=== PATIENT | female | born 1950 | race Caucasian/White ===

== ENCOUNTER 2024-04-23 08:13 | Inpatient (IN) | payer MEDICARE, OTHER, SELFPAY ==
[2024-04-07 14:00] LABS: Hematocrit 37.3 % (37.0-47.0); Hemoglobin 12.1 g/dL (12.0-16.0); Mean Corp Hgb Conc. 32.4 g/dL (33.0-37.0); Mean Corpuscular Hgb 30.6 pg (27.0-31.0); Mean Corpuscular Volume 94.2 fL (81.0-99.0); Mean Platelet Volume 10.9 fL (7.4-10.4); Platelet Count 255 10^3/uL (130-400); Red Blood Cell Count 3.96 10^6/uL (4.20-5.40); White Blood Cell Count 4.7 10^3/uL (4.8-10.8)
[2024-04-07 14:01] VITALS: BMI 30.8
[2024-04-07 14:37] VITALS: BMI 30.8
[2024-04-07 14:57] LABS: ALT (SGPT) 25 U/L (0-35); AST (SGOT) 29 U/L (14-36); Albumin 4.1 g/dl (3.5-5.0); Alkaline Phosphatase 52 U/L (38-126); Blood Urea Nitrogen 14 mg/dl (7-17); Calcium 9.9 mg/dl (8.4-10.2); Carbon Dioxide 28 mmol/L (22-30); Chloride 103 mmol/L (98-107); Estimated Creatinine Clearance 75 ml/min; Glucose 63 mg/dl (70-99); Sodium 136 mmol/L (135-145); Total Bilirubin 0.5 mg/dl (0.2-1.3); Total Protein 6.9 g/dl (6.3-8.2); eGFR > 60.00
[2024-04-08 09:14] LABS: Glycohemoglobin (HgbA1c) 5.4 % (4.0-5.6)
[2024-04-23] VITALS (21 sets, daily range): BP systolic 91–143; BP diastolic 60–88; PULSE 99; O2SAT 96
[2024-04-23] MEDS: CELEBREX 200 MG PO (09:08)
[2024-04-23] MEDS: NORMOSOL-R/PLASMALYTE-A 1000 IV ×2 (09:08→14:12)
[2024-04-23] MEDS: TYLENOL 650 MG PO ×4 (09:08→23:02)
[2024-04-23] MEDS: ZOFRAN 4 MG IV (12:15)
--- NOTE | 2024-04-23 12:19 | W.PN.UPDATE ---
Update Note
Progress Note Update
L knee OA s/p L TKA w/ Dr Wise 04/23/24
DVT prophylaxis - ASA, b/l venous foot pumps
GERD - continue PPI therapy
Rheumatoid arthritis, on Xeljanz - held 1 week prior to surgery
- Will continue to hold 2 weeks post-surgery per surgeon
- Would benefit from Cefadroxil upon d/c
Lung cancer, 2019, status post left upper lobe lung resection - monitor O2
- IS
Hypercholesterolemia, statin intolerant.
Mild coronary artery disease per coronary artery calcium score
Venous varicosities
Irritable bowel syndrome.
Hepatic steatosis
Uterine fibroids
History of recurrent UTIs
Osteoporosis
Mild leukopenia
Obesity, BMI 30.8
Remote history of tobacco abuse
The patient is an appropriate candidate for early d/c 04/24/24
[2024-04-23] MEDS: ROXICODONE 5 MG PO ×3 (13:05→22:01)
[2024-04-23] MEDS: FOLVITE 1 MG PO (14:11)
[2024-04-23] MEDS: PROTONIX 40 MG PO (14:11)
--- NOTE | 2024-04-23 14:50 | PTCARENOTE ---
pt admitted from PACU AOx3. denies pain. LCTA B/L RA. abd round obese +BSx4. cont b&B. Aquacel dressing CDI left knee, skin otherwise intact. B/l thigh high teds. foot pumps b/l +PP. neurovascular checks WNL. CB in reach- instructed on use.
[2024-04-23] MEDS: ANCEF 5 IV (16:02)
[2024-04-23] MEDS: TYLENOL PO (16:05)
[2024-04-23] MEDS: ROXICODONE 10 MG PO (16:07)
[2024-04-23] MEDS: ASPIRIN 325 MG PO (17:51)
[2024-04-23] MEDS: COLACE 100 MG PO (19:39)
[2024-04-23] MEDS: SENOKOT 17.2 MG PO (19:39)
[2024-04-23] MEDS: TORADOL 10 MG IV (21:07)
[2024-04-24] VITALS (9 sets, daily range): BP systolic 110–152; BP diastolic 49–90; PULSE 84–87
[2024-04-24] MEDS: ANCEF 5 IV (00:24)
[2024-04-24] MEDS: BACTROBAN 2% OINTMENT 1 APPLIC NASAL ×3 (03:49→19:36)
[2024-04-24] MEDS: TYLENOL 650 MG PO ×6 (03:53→23:15)
[2024-04-24] MEDS: ROXICODONE 5 MG PO (06:32)
[2024-04-24] MEDS: ASPIRIN 325 MG PO (07:11)
[2024-04-24] MEDS: MOBIC 15 MG PO (07:12)
[2024-04-24] MEDS: FOLVITE 1 MG PO (07:12)
[2024-04-24] MEDS: SENOKOT 17.2 MG PO ×2 (07:12→19:41)
[2024-04-24] MEDS: PROTONIX 40 MG PO (07:12)
[2024-04-24] MEDS: COLACE PO (07:16)
[2024-04-24] MEDS: DECADRON 4 MG PO ×2 (09:09→19:37)
[2024-04-24] MEDS: NEURONTIN 200 MG PO ×3 (09:09→21:08)
[2024-04-24] MEDS: LIDOCAINE 4% PATCH 2 PATCH TOPICAL (09:09)
--- NOTE | 2024-04-24 09:51 | W.PN.ORTHO ---
Today's Communication / Plan
-
Monitor pain w/ pain med adjustments.
Work w/ PT as able. Did well w/ OT despite reported pain.
D/c later today if clinically stable.
Assessment
.
Distal Motor Intact: Yes
Dressing:
Clean, dry and intact.
Assessment:
L knee OA s/p L TKA w/ Dr Wise 04/23/24
DVT prophylaxis - ASA, b/l venous foot pumps
Post-op L knee pain - offered change from Oxycodone to Dilaudid but patient declined
- Will add Gabapentin for neuropathic pain, Decadron for inflammation, and Lidocaine patches
- Continue to monitor and adjust as needed
GERD - continue PPI therapy
Rheumatoid arthritis, on Xeljanz - held 1 week prior to surgery
- Will continue to hold 2 weeks post-surgery per surgeon
- Would benefit from Cefadroxil upon d/c
Lung cancer, 2019, status post left upper lobe lung resection - O2 stable on RA
- IS
Hypercholesterolemia, statin intolerant.
Mild coronary artery disease per coronary artery calcium score
Venous varicosities
Irritable bowel syndrome.
Hepatic steatosis
Uterine fibroids
History of recurrent UTIs
Osteoporosis
Mild leukopenia
Obesity, BMI 30.8
Remote history of tobacco abuse
The patient is an appropriate candidate for early d/c 04/24/24
Plan
.
Surgery / Date: L TKA w/ Dr Wise 04/23/24
DVT Prophylaxis: Aspirin
Activity:
Out of bed.
PT/OT
Discharge Plan: Home w/ Outpatient PT
Subjective
.
.:
Patient examined resting in her chair.
L knee pain this AM - pain meds adjusted per pt preference.
Denies any other new significant complaints.
Eager for potential d/c today.
Vital Signs and Labs
.
Vital Signs and Labs:
Lab Results
04/07/24 12:40
04/07/24 12:40
Temp Pulse Resp BP Pulse Ox
97.6 F 81 16 110/49 98
04/24/24 07:01 04/24/24 07:01 04/24/24 07:01 04/24/24 07:01 04/24/24 07:01
Non-invasive Hgb result: 11.1
Physical Exam
-
HEENT: No pallor, cyanosis, or jaundice. Throat clear.
NECK: Supple. No JVD.
RESPIRATORY: Lungs clear to auscultation.
CVS: S1, S2 normal. RRR.
ABDOMEN: Soft, non-tender. No distension. Obese.
EXTREMITIES: Expected post-surgical L knee edema. Strength equal, no calf pain with palpation/dorsiflexion. Calves soft.
SENIOR IT AUDITOR: AOx3. No focal deficits. vacuum frame operator grossly intact
[2024-04-24] MEDS: ROXICODONE 10 MG PO ×2 (10:01→15:09)
--- NOTE | 2024-04-24 10:03 | W.DS.TRANS ---
DC Summary - Hvac Mechanic
-
Discharge Instructions:
Sleep Apnea Risk Low
Discharge Diagnosis/Procedures L knee OA s/p L TKA w/ Dr Wise 04/23/24
Diet Other diet
Additional Diets Diabetic carb controlled x1 week for wound
healing/infection prevention.
Activity As tolerated,With Walker
Driving Restrictions Not until seen by your Dr
Bathing Restrictions OK to Shower
Other Services PT
Wound Care Dressing to be removed 1 week post-surgery.
Instructions:
Stand-Alone Forms: Total Hip/Knee Replacement D/C
Changes to Home Medications: Yes
Discharge Medications:
DC Medications w/original date entered in [employer]
[place] Bergamot 2 cap PO QPM 04/04/24
esomeprazole magnesium 20 mg capsule,delayed release (Nexium 24HR) 20 mg PO DAILY 04/04/24
folic acid 1 mg tablet 1 mg PO DAILY 04/04/24
wpgbfqlx-skjc-mfae 8 mg-folic 400 mcg-K 50 mcg-lutein 300 mcg tablet (Centrum Silver Women) 1 tab PO DAILY 04/04/24
tofacitinib 11 mg tablet,extended release 24 hr (Xeljanz XR) 11 mg PO DAILY 04/04/24
mupirocin 2 % topical ointment 1 applic intranasal BID #1 tube 04/07/24
Saccharomyces boulardii 250 mg capsule (Florastor) 250 mg PO BID #14 caps 04/23/24
acetaminophen 500 mg tablet (Acetaminophen Extra Strength) 1,000 mg (2 x 500 mg) PO Q6H #60 tabs 04/23/24
aspirin 325 mg tablet 325 mg PO DAILY #30 tabs 04/23/24
cefadroxil 500 mg capsule 500 mg PO BID #14 caps 04/23/24
docusate sodium 100 mg capsule 100 mg PO BID #30 caps 04/23/24
meloxicam 15 mg tablet 15 mg PO DAILY #14 tabs 04/23/24
ondansetron HCl 4 mg tablet 4 mg PO Q6H PRN nausea and vomiting #30 tabs 04/23/24
sennosides 8.6 mg tablet (Lidia-eric) 17.2 mg (2 x 8.6 mg) PO BID #30 tabs 04/23/24
dexamethasone 4 mg tablet 4 mg PO BID Anti-inflammatory #7 tabs 04/24/24
gabapentin 100 mg capsule 200 mg (2 x 100 mg) PO TID neuropathic pain #30 caps 04/24/24
lidocaine 4 % topical patch 2 patch topical DAILY #30 ea 04/24/24
oxycodone 5 mg tablet 5 - 10 mg (1 - 2 x 5 mg) PO Q6H PRN moderate-severe pain #45 tabs 04/24/24
Home Medication Changes
Saccharomyces boulardii 250 mg capsule (Florastor) 250 mg PO BID #14 caps 04/23/24
acetaminophen 500 mg tablet (Acetaminophen Extra Strength) 1,000 mg (2 x 500 mg) PO Q6H #60 tabs 04/23/24
aspirin 325 mg tablet 325 mg PO DAILY #30 tabs 04/23/24
cefadroxil 500 mg capsule 500 mg PO BID #14 caps 04/23/24
docusate sodium 100 mg capsule 100 mg PO BID #30 caps 04/23/24
meloxicam 15 mg tablet 15 mg PO DAILY #14 tabs 04/23/24
ondansetron HCl 4 mg tablet 4 mg PO Q6H PRN nausea and vomiting #30 tabs 04/23/24
sennosides 8.6 mg tablet (Lidia-eric) 17.2 mg (2 x 8.6 mg) PO BID #30 tabs 04/23/24
dexamethasone 4 mg tablet 4 mg PO BID Anti-inflammatory #7 tabs 04/24/24
gabapentin 100 mg capsule 200 mg (2 x 100 mg) PO TID neuropathic pain #30 caps 04/24/24
lidocaine 4 % topical patch 2 patch topical DAILY #30 ea 04/24/24
oxycodone 5 mg tablet 5 - 10 mg (1 - 2 x 5 mg) PO Q6H PRN moderate-severe pain #45 tabs 04/24/24
Pending Results: No
--- NOTE | 2024-04-24 10:26 | CM ---
Met with pt at bedside
Pt reports she lives with her in a 2 story home; 3 steps to enter, 13 steps to enter, 1/2 bath on FF
Independent at baseline, retired, drives
DME - rolling walker, single point cane, raised toilet pain
SNF/HH - no past hx
Has ride at d/c
PCP - Balwinder Goodman
Pharm - [facility]
Has appt for outpatient PT tomorrow 04/25 at [facility]. Has transport and Rx
Given IMM
Plan - home with outpatient PT
[2024-04-24] MEDS: TORADOL 30 MG IV (15:34)
[2024-04-24] MEDS: COLACE 100 MG PO (19:36)
[2024-04-25 03:00] VITALS: BP 146/66
[2024-04-25] MEDS: TYLENOL 650 MG PO ×2 (04:48→08:38)
[2024-04-25] MEDS: ROXICODONE 5 MG PO (06:25)
[2024-04-25 07:09] VITALS: BP 120/81
[2024-04-25] MEDS: FOLVITE 1 MG PO (08:36)
[2024-04-25] MEDS: NEURONTIN 200 MG PO (08:36)
[2024-04-25] MEDS: LIDOCAINE 4% PATCH 2 PATCH TOPICAL (08:37)
[2024-04-25] MEDS: PROTONIX 40 MG PO (08:38)
[2024-04-25] MEDS: MOBIC 15 MG PO (08:38)
[2024-04-25] MEDS: DECADRON 4 MG PO (08:38)
[2024-04-25] MEDS: COLACE 100 MG PO (08:38)
[2024-04-25] MEDS: ASPIRIN 325 MG PO (08:38)
[2024-04-25 08:50] VITALS: BP 135/81; PULSE 97
--- NOTE | 2024-04-25 09:09 | W.PN.ORTHO ---
Today's Communication / Plan
-
D/c today since clinically stable.
Assessment
.
Distal Motor Intact: Yes
Dressing:
Clean, dry and intact.
Assessment:
L knee OA s/p L TKA w/ Dr Wise 04/23/24
DVT prophylaxis - ASA, b/l venous foot pumps
Post-op L knee pain - offered change from Oxycodone to Dilaudid but patient declined
- Did add Gabapentin for neuropathic pain, Decadron for inflammation, and Lidocaine patches POD 1
- Pain better tolerated by POD 2 w/ med changes above
BM POD 2 - will change Senna from BID to BIDPRN
- Continue Colace while on Oxycodone
GERD - continue PPI therapy
Rheumatoid arthritis, on Xeljanz - held 1 week prior to surgery
- Will continue to hold 2 weeks post-surgery per surgeon
- Would benefit from Cefadroxil upon d/c
Lung cancer, 2020, status post left upper lobe lung resection - O2 stable on RA
- IS
Hypercholesterolemia, statin intolerant.
Mild coronary artery disease per coronary artery calcium score
Venous varicosities
Irritable bowel syndrome.
Hepatic steatosis
Uterine fibroids
History of recurrent UTIs
Osteoporosis
Mild leukopenia
Obesity, BMI 30.8
Remote history of tobacco abuse
Plan
.
Surgery / Date: L TKA w/ Dr Wise 04/23/24
DVT Prophylaxis: Aspirin
Activity:
Out of bed.
PT/OT
Discharge Plan: Home w/ Outpatient PT
Subjective
.
.:
Patient resting comfortably in her chair.
L knee pain better tolerated in comparison to yesterday.
Denies any new significant complaints.
Eager for d/c today.
Vital Signs and Labs
.
Vital Signs and Labs:
Lab Results
04/07/24 12:40
04/07/24 12:40
Temp Pulse Resp BP Pulse Ox
97.9 F 111 18 120/81 98
04/25/24 03:00 04/25/24 07:09 04/25/24 07:09 04/25/24 07:09 04/25/24 07:09
Non-invasive Hgb result: 11.1
Physical Exam
-
HEENT: No pallor, cyanosis, or jaundice. Throat clear.
NECK: Supple. No JVD.
RESPIRATORY: Lungs clear to auscultation.
CVS: S1, S2 normal. RRR.�
ABDOMEN: Soft, non-tender. No distension. Obese.
EXTREMITIES: Expected post-surgical L knee edema. Strength equal, no calf pain with palpation/dorsiflexion. Calves soft.
SOLVENT PLANT OPERATOR: AOx3. No focal deficits. corner brace block machine operator grossly intact
--- NOTE | 2024-04-25 10:37 | CM ---
Pt for discharge today
Has ride home
Scheduled for outpatient PT outpatient on 04/28 at [facility]. Has transport and Rx
Plan - home with outpatient PT
[2024-04-25 11:05] VITALS: BP 134/80
== END 2024-04-25 11:58 | disposition home or self-care (01) | DRG 470 ==
LOC: 2 SOUTH 08:13
PROVIDERS: ADMITTING PHYSICIAN Orthopaedic Surgery; FAMILY PHYSICIAN Family Medicine; REFERRING PHYSICIAN Student in an Organized Health Care Education/Training Program
PROC: 0SRD0J9 Replacement of Left Knee Joint with Synthetic Substitute, Cemented, Open Approach (ICD-10-PCS; 2024-04-23)
DX: M17.12 Unilateral primary osteoarthritis, left knee (principal); E78.00 Pure hypercholesterolemia, unspecified; I25.10 Atherosclerotic heart disease of native coronary artery without angina pectoris; K21.9 Gastro-esophageal reflux disease without esophagitis; K58.9 Irritable bowel syndrome, unspecified; E66.9 Obesity, unspecified; M81.0 Age-related osteoporosis without current pathological fracture; D72.819 Decreased white blood cell count, unspecified; K76.0 Fatty (change of) liver, not elsewhere classified; D25.9 Leiomyoma of uterus, unspecified; M06.9 Rheumatoid arthritis, unspecified; Z85.118 Personal history of other malignant neoplasm of bronchus and lung; Z90.2 Acquired absence of lung [part of]; Z87.440 Personal history of urinary (tract) infections; Z68.30 Body mass index [BMI] 30.0-30.9, adult; Z87.891 Personal history of nicotine dependence; Z88.2 Allergy status to sulfonamides
CPT/HCPCS: 36415; 73560; 80053; 83036; 85027; 86850; 86900; 86901; 87070; 97110; 97116; 97162; 97166; 97530; C1713; C1776

== ENCOUNTER → 2024-05-07 14:45 | Outpatient (REF) | payer MEDICARE, OTHER, SELFPAY | LOC: RAD 14:45 | PROVIDERS: ATTENDING PHYSICIAN Physician Assistant; FAMILY PHYSICIAN Family Medicine | DX: M79.662 Pain in left lower leg (principal) | CPT/HCPCS: 93971 ==